=== PATIENT | female | born 1985 | race Caucasian/White ===

== ENCOUNTER 2019-06-30 15:20 | Inpatient (IN) | payer MEDICAID, OTHER ==
[~2019-06-30] VITALS: Ht 160 cm; Wt 75.8 kg
[~2019-06-30 15:20] MED LIST: PROP40TA7 PO
[2019-06-30] MEDS ORDERED: KETOROLAC 30MG/ML VIAL IV STA (16:06)
[2019-06-30] MEDS ORDERED: SODIUM CHLORIDE 0.9% 1,000 ML IV ONE (16:06)
[2019-06-30] MEDS ORDERED: ONDANSETRON HCL 4MG/2ML INJ IV STA (16:06)
[2019-06-30 16:28] LABS: CHLORIDE 106 mEq/L (98-107)
[2019-06-30 16:30] LABS: HEMATOCRIT. 34.1 % (36.0-48.0); HEMOGLOBIN. 10.8 g/dL (12.0-16.0); MEAN CORPUSCULAR HEMOGLOBIN 20.6 pg (28.0-32.0); MEAN CORPUSCULAR VOLUME 64.9 fL (81.0-99.0); MEAN PLATELET VOLUME 8.8 fl (7.4-10.4); PLATELET 305 x1000/uL (130-400); RED BLOOD CELL COUNT 5.26 mill/uL (4.2-5.4); RED CELL DISTRIBUTION WIDTH 20.1 % (11.6-14.6)
[2019-06-30 16:32] LABS: INR 1.5; PROTHROMBIN TIME 14.8 sec (9.6-11.0)
[2019-06-30 17:22] LABS: ATYPICAL LYMPHOCYTES 1; PLATELET ESTIMATE NORMAL
[2019-06-30] MEDS ORDERED: POTASSIUM CHLORIDE 20MEQ TABLET SR PO ONE (17:30)
[2019-06-30] MEDS ORDERED: PIPERACILLIN/TAZ 3.375G PREMIX 50 ML IV ONE (18:15)
[2019-06-30 19:51] LABS: CLARITY URINE TURBID (CLEAR); COLOR URINE DARK YELLOW (YELLOW); KETONES URINE TRACE (NEGATIVE); LEUKOCYTE ESTERASE URINE 1+ (NEGATIVE); NITRITE URINE POSITIVE (NEGATIVE); OCCULT BLOOD URINE NEGATIVE (NEGATIVE); PROTEIN URINE 1+ (NEGATIVE); SPECIFIC GRAVITY URINE 1.031 (1.005-1.030)
[2019-06-30 20:03] LABS: *BARBITURATES SCREEN URINE NEGATIVE (NEGATIVE); *BENZODIAZEPINES SCREEN URINE NEGATIVE (NEGATIVE)
[2019-06-30 20:04] LABS: *COCAINE SCREEN URINE NEGATIVE (NEGATIVE); METHADONE URINE SCREEN NEGATIVE (NEGATIVE); OPIATES URINE SCREEN NEGATIVE (NEGATIVE); PHENCYCLIDINE URINE SCREEN NEGATIVE (NEGATIVE)
[2019-06-30 20:09] LABS: *AMPHETAMINES SCREEN URINE PRESUMTIVE POSITIVE (NEGATIVE)
[2019-06-30 20:10] LABS: CANNABINOID URINE SCREEN PRESUMTIVE POSITIVE (NEGATIVE)
[2019-06-30] MEDS ORDERED: DOCUSATE SODIUM 100MG CAPSULE PO PRN (20:30)
[2019-06-30] MEDS ORDERED: MAGNESIUM/ALUMINUM HYDROXIDE/SIMETHICONE 30ML UDC PO PRN (20:30)
[2019-06-30] MEDS ORDERED: CLONIDINE 0.1MG TABLET PO PRN (20:30)
[2019-06-30] MEDS ORDERED: ONDANSETRON HCL 4MG/2ML INJ IV PRN (20:30)
[2019-06-30 21:00] VITALS: BP 107/71
[2019-06-30] MEDS: MORPHINE SULFATE 2 MG/ML CPJ (NOT FOR IM USE) IV PRN (21:31)
[2019-06-30] MEDS ORDERED: CEFTRIAXONE 1 G PREMIX 50 ML IV SCH (22:30)
[2019-06-30] MEDS ORDERED: POTASSIUM CHLORIDE INJ 40 MEQ in DEXT 5% WATER 250 ML IV NR (22:30)
[2019-06-30] MEDS: DEXT 5%/0.9% NACL 1,000 ML IV SCH (23:55)
[2019-07-01] VITALS: BP 104/57
[2019-07-01] MEDS: MORPHINE SULFATE 2 MG/ML CPJ (NOT FOR IM USE) IV PRN ×2 (01:14→06:50)
[2019-07-01 04:00] VITALS: BP 99/52
[2019-07-01 06:58] LABS: HEMATOCRIT. 28.9 % (36.0-48.0); MEAN CORPUSCULAR VOLUME 64.4 fL (81.0-99.0); MEAN PLATELET VOLUME 9.1 fl (7.4-10.4); PLATELET 232 x1000/uL (130-400); RED BLOOD CELL COUNT 4.49 mill/uL (4.2-5.4); RED CELL DISTRIBUTION WIDTH 20.6 % (11.6-14.6)
[2019-07-01 07:03] LABS: INR 1.8; PROTHROMBIN TIME 18.1 sec (9.6-11.0)
[2019-07-01 08:00] VITALS: BP 94/59
[2019-07-01 08:48] LABS: HEPATITIS B SURFACE ANTIGEN NEGATIVE
[2019-07-01 09:18] LABS: HEPATITIS A AB IGM NEGATIVE (NEGATIVE)
[2019-07-01 09:36] LABS: CHLORIDE 110 mEq/L (98-107)
[2019-07-01 09:47] LABS: PHOSPHORUS 3.5 mg/dL (2.5-4.9)
[2019-07-01 12:00] VITALS: BP 109/64
[2019-07-01 14:30] LABS: PLATELET ESTIMATE NORMAL
[2019-07-01 16:00] VITALS: BP 96/61
[2019-07-01] MEDS: AMPICILLIN SOD/SULBACTAM NA 3 G in SODIUM CHLORIDE 0.9% 100 ML IV SCH ×2 (16:12→21:51)
[2019-07-01 20:00] VITALS: BP 97/50
[2019-07-01] MEDS: DEXT 5%/0.9% NACL 1,000 ML IV SCH (21:52)
[2019-07-02] VITALS (7 sets, daily range): BP systolic 97–116; BP diastolic 56–72
[2019-07-02] MEDS: AMPICILLIN SOD/SULBACTAM NA 3 G in SODIUM CHLORIDE 0.9% 100 ML IV SCH ×4 (03:16→21:32)
[2019-07-02 07:06] LABS: INR 1.7; PROTHROMBIN TIME 16.7 sec (9.6-11.0)
[2019-07-02 07:07] LABS: HEMATOCRIT. 27.6 % (36.0-48.0); HEMOGLOBIN. 8.8 g/dL (12.0-16.0); MEAN CORPUSCULAR HEMOGLOBIN 20.5 pg (28.0-32.0); MEAN CORPUSCULAR VOLUME 64.1 fL (81.0-99.0); MEAN PLATELET VOLUME 8.8 fl (7.4-10.4); PLATELET 237 x1000/uL (130-400); RED BLOOD CELL COUNT 4.31 mill/uL (4.2-5.4); RED CELL DISTRIBUTION WIDTH 20.7 % (11.6-14.6)
[2019-07-02 07:18] LABS: CHLORIDE 110 mEq/L (98-107)
[2019-07-02 07:40] LABS: CREATINE KINASE 25 IU/L (26-192)
[2019-07-02 09:26] LABS: PLATELET ESTIMATE NORMAL
[2019-07-02] MEDS: MORPHINE SULFATE 2 MG/ML CPJ (NOT FOR IM USE) IV PRN (13:57)
[2019-07-03] VITALS: BP 100/61
[2019-07-03] MEDS: AMPICILLIN SOD/SULBACTAM NA 3 G in SODIUM CHLORIDE 0.9% 100 ML IV SCH ×4 (03:00→21:53)
[2019-07-03 04:00] VITALS: BP 98/53
[2019-07-03 05:04] LABS: HEMOGLOBIN. 9.1 g/dL (12.0-16.0); MEAN CORPUSCULAR HEMOGLOBIN 20.9 pg (28.0-32.0); MEAN CORPUSCULAR VOLUME 63.9 fL (81.0-99.0); MEAN PLATELET VOLUME 8.7 fl (7.4-10.4); PLATELET 260 x1000/uL (130-400); RED BLOOD CELL COUNT 4.38 mill/uL (4.2-5.4); RED CELL DISTRIBUTION WIDTH 21.2 % (11.6-14.6)
[2019-07-03 07:12] LABS: HIV SCREEN 4G Non Reactive (Non Reactive)
[2019-07-03 08:00] VITALS: BP 96/54
[2019-07-03 08:05] LABS: CHLORIDE 111 mEq/L (98-107)
[2019-07-03 08:15] LABS: CREATINE KINASE 23 IU/L (26-192)
[2019-07-03] MEDS ORDERED: HYDROCODONE/ACETAMINOPHEN 5/325MG TABLET PO PRN (10:30)
[2019-07-03 12:00] VITALS: BP 107/70
[2019-07-03 16:00] VITALS: BP 111/76
[2019-07-03] MEDS: DEXT 5%/0.9% NACL 1,000 ML IV SCH (16:10)
[2019-07-03 20:00] VITALS: BP 114/71
[2019-07-03] MEDS: MORPHINE SULFATE 2 MG/ML CPJ (NOT FOR IM USE) IV PRN (20:17)
[2019-07-04] VITALS: BP 102/68
[2019-07-04 04:00] VITALS: BP 90/58
[2019-07-04] MEDS: AMPICILLIN SOD/SULBACTAM NA 3 G in SODIUM CHLORIDE 0.9% 100 ML IV SCH ×4 (04:59→21:01)
[2019-07-04 08:00] VITALS: BP 101/62
[2019-07-04] MEDS: DEXT 5%/0.9% NACL 1,000 ML IV SCH (08:18)
[2019-07-04 09:35] LABS: INR 2.1; PROTHROMBIN TIME 21.1 sec (9.6-11.0)
[2019-07-04 11:13] LABS: HEMATOCRIT 33.2 % (36.0-48.0); HEMOGLOBIN 10.6 g/dL (12.0-16.0); MEAN CORPUSCULAR HEMOGLOBIN 20.4 pg (28.0-32.0); PLATELET 304 x1000/uL (130-400); RED BLOOD CELL COUNT 5.18 mill/uL (4.2-5.4); RED CELL DISTRIBUTION WIDTH 21.5 % (11.6-14.6)
[2019-07-04 11:39] LABS: CHLORIDE 109 mEq/L (98-107)
[2019-07-04 12:00] VITALS: BP 105/67
[2019-07-04] MEDS ORDERED: MAGNESIUM 2 G PREMIX 50 ML IV SCH (13:00)
[2019-07-04 15:28] LABS: PLATELET ESTIMATE NORMAL
[2019-07-04 16:00] VITALS: BP 108/71
[2019-07-04] MEDS: MORPHINE SULFATE 2 MG/ML CPJ (NOT FOR IM USE) IV PRN (20:49)
[2019-07-05] MEDS: AMPICILLIN SOD/SULBACTAM NA 3 G in SODIUM CHLORIDE 0.9% 100 ML IV SCH ×4 (05:42→20:46)
[2019-07-05 08:00] VITALS: BP 93/50
[2019-07-05 16:00] VITALS: BP 105/67
[2019-07-05] MEDS: DEXT 5%/0.9% NACL 1,000 ML IV SCH (17:45)
[2019-07-05] MEDS ORDERED: PHYTONADIONE 10MG/ML AMP SUBCUT NR (18:30)
[2019-07-06] VITALS: BP_SYST 98; BP_DIAS 66; BP_DIAS 71
[2019-07-06 04:00] VITALS: BP 100/70
[2019-07-06] MEDS: AMPICILLIN SOD/SULBACTAM NA 3 G in SODIUM CHLORIDE 0.9% 100 ML IV SCH ×5 (05:23→21:52)
[2019-07-06 07:02] LABS: HEMATOCRIT. 30.3 % (36.0-48.0); HEMOGLOBIN. 9.7 g/dL (12.0-16.0); MEAN CORPUSCULAR HEMOGLOBIN 20.5 pg (28.0-32.0); MEAN PLATELET VOLUME 9.1 fl (7.4-10.4); PLATELET 300 x1000/uL (130-400); RED BLOOD CELL COUNT 4.73 mill/uL (4.2-5.4); RED CELL DISTRIBUTION WIDTH 21.9 % (11.6-14.6)
[2019-07-06 07:05] LABS: INR 2.4; PROTHROMBIN TIME 23.9 sec (9.6-11.0)
[2019-07-06 07:10] LABS: CHLORIDE 106 mEq/L (98-107)
[2019-07-06 08:00] VITALS: BP 100/69
[2019-07-06] MEDS ORDERED: PHYTONADIONE 10MG/ML AMP SUBCUT NR (09:00)
[2019-07-06] MEDS: DEXT 5%/0.9% NACL 1,000 ML IV SCH (09:27)
[2019-07-06 12:00] VITALS: BP 113/71
[2019-07-06 16:00] VITALS: BP 106/68
[2019-07-06 20:00] VITALS: BP 109/57
[2019-07-07] VITALS: BP 106/68
[2019-07-07] MEDS: AMPICILLIN SOD/SULBACTAM NA 3 G in SODIUM CHLORIDE 0.9% 100 ML IV SCH (03:03)
[2019-07-07 04:00] VITALS: BP 101/66
[2019-07-07 06:58] LABS: INR 2.5; PARTIAL THROMBOPLASTIN TIME 50.2 sec (23.4-31.0); PROTHROMBIN TIME 25.1 sec (9.6-11.0)
[2019-07-07 08:00] VITALS: BP 104/50
[2019-07-07 10:11] LABS: ACTIN (SMOOTH MUSCLE) ANTIBODY 24 Units (0-19); MITOCHONDRIAL M2 AB <20.0 Units (0.0-20.0)
[2019-07-07 12:00] VITALS: BP 109/69
[2019-07-07 13:14] LABS: ANTI-NUCLEAR ANTIBODIES DIRECT Negative (Negative)
[2019-07-07] MEDS: AMOXICILLIN/POTASSIUM CLAVULANATE 500/125MG TAB PO SCH ×2 (13:29→21:18)
[2019-07-07] MEDS: LACTULOSE 20G/30ML UDC PO SCH ×2 (13:29→21:19)
[2019-07-07 16:00] VITALS: BP 86/53
[2019-07-07] MEDS: PHYTONADIONE 1MG/0.5ML AMP SUBCUT SCH (16:52)
[2019-07-07 20:00] VITALS: BP 106/71
[2019-07-07] MEDS: RIFAXIMIN 550 MG TABLET PO SCH (21:19)
[2019-07-08] VITALS: BP 111/64
[2019-07-08 04:00] VITALS: BP 120/71
[2019-07-08] MEDS: AMOXICILLIN/POTASSIUM CLAVULANATE 500/125MG TAB PO SCH ×3 (05:41→23:08)
[2019-07-08] MEDS: LACTULOSE 20G/30ML UDC PO SCH ×3 (05:41→23:08)
[2019-07-08] MEDS: RIFAXIMIN 550 MG TABLET PO SCH ×2 (09:27→23:08)
[2019-07-08] MEDS: PHYTONADIONE 1MG/0.5ML AMP SUBCUT SCH ×2 (09:28→17:32)
[2019-07-08] MEDS: DEXT 5%/0.9% NACL 1,000 ML IV SCH (14:21)
[2019-07-08 17:59] LABS: HEMATOCRIT 27.8 % (36.0-48.0); HEMOGLOBIN 8.9 g/dL (12.0-16.0); MEAN CORPUSCULAR HEMOGLOBIN 20.7 pg (28.0-32.0); MEAN CORPUSCULAR VOLUME 64.5 fL (81.0-99.0); PLATELET 337 x1000/uL (130-400); RED BLOOD CELL COUNT 4.31 mill/uL (4.2-5.4); RED CELL DISTRIBUTION WIDTH 22.6 % (11.6-14.6)
[2019-07-08 18:12] LABS: CHLORIDE 107 mEq/L (98-107)
[2019-07-08 18:16] LABS: PARTIAL THROMBOPLASTIN TIME 57.3 sec (23.4-31.0)
[2019-07-08 18:58] LABS: INR 3.3; PROTHROMBIN TIME 32.6 sec (9.6-11.0)
[2019-07-08 20:00] VITALS: BP 111/65
[2019-07-09] VITALS (10 sets, daily range): BP systolic 106–119; BP diastolic 61–83
[2019-07-09] MEDS: AMOXICILLIN/POTASSIUM CLAVULANATE 500/125MG TAB PO SCH ×3 (06:00→17:59)
[2019-07-09] MEDS: LACTULOSE 20G/30ML UDC PO SCH ×3 (06:00→22:07)
[2019-07-09 09:39] LABS: HEMATOCRIT. 32.5 % (36.0-48.0); HEMOGLOBIN. 10.3 g/dL (12.0-16.0); MEAN CORPUSCULAR HEMOGLOBIN 20.8 pg (28.0-32.0); MEAN CORPUSCULAR VOLUME 65.6 fL (81.0-99.0); MEAN PLATELET VOLUME 9.1 fl (7.4-10.4); PLATELET 375 x1000/uL (130-400); RED BLOOD CELL COUNT 4.96 mill/uL (4.2-5.4); RED CELL DISTRIBUTION WIDTH 23.6 % (11.6-14.6)
[2019-07-09 09:49] LABS: CHLORIDE 106 mEq/L (98-107)
[2019-07-09] MEDS: RIFAXIMIN 550 MG TABLET PO SCH ×2 (10:03→22:07)
[2019-07-09] MEDS: PHYTONADIONE 1MG/0.5ML AMP SUBCUT SCH ×2 (10:03→18:02)
[2019-07-09] MEDS ORDERED: POTASSIUM CHLORIDE 20MEQ TABLET SR PO NR (11:00)
[2019-07-09 12:53] LABS: PLATELET ESTIMATE NORMAL
[2019-07-09] MEDS: DEXT 5%/0.9% NACL 1,000 ML IV SCH (17:59)
[2019-07-09 19:09] LABS: INR 3.5; PARTIAL THROMBOPLASTIN TIME 59.4 sec (23.4-31.0); PROTHROMBIN TIME 34.3 sec (9.6-11.0)
[2019-07-09] MEDS ORDERED: DEXT 5% IV NR (23:00)
[2019-07-09] MEDS ORDERED: ACETYLCYSTEINE IV NR (23:00)
[2019-07-09] MEDS ORDERED: WATER IV NR (23:00)
[2019-07-10] VITALS (15 sets, daily range): BP systolic 98–149; BP diastolic 62–80
[2019-07-10] MEDS ORDERED: WATER IV NR ×2
[2019-07-10] MEDS ORDERED: ACETYLCYSTEINE IV NR ×2
[2019-07-10] MEDS ORDERED: DEXT 5% IV NR ×2
[2019-07-10] MEDS: DIPHENHYDRAMINE 50MG/ML VIAL IV PRN ×2 (01:34→06:29)
[2019-07-10] MEDS: AMOXICILLIN/POTASSIUM CLAVULANATE 500/125MG TAB PO SCH ×2 (05:12→13:58)
[2019-07-10] MEDS: LACTULOSE 20G/30ML UDC PO SCH ×2 (05:12→14:00)
[2019-07-10] MEDS ORDERED: ACETYLCYSTEINE IV SCH (06:00)
[2019-07-10] MEDS ORDERED: DEXTROSE 5% IV SCH (06:00)
[2019-07-10] MEDS ORDERED: WATER IV SCH (06:00)
[2019-07-10 06:42] LABS: HEMATOCRIT. 27.8 % (36.0-48.0); HEMOGLOBIN. 8.9 g/dL (12.0-16.0); MEAN CORPUSCULAR HEMOGLOBIN 20.7 pg (28.0-32.0); MEAN CORPUSCULAR VOLUME 64.5 fL (81.0-99.0); MEAN PLATELET VOLUME 8.8 fl (7.4-10.4); PLATELET 359 x1000/uL (130-400); RED BLOOD CELL COUNT 4.31 mill/uL (4.2-5.4); RED CELL DISTRIBUTION WIDTH 23.1 % (11.6-14.6)
[2019-07-10 06:47] LABS: CHLORIDE 108 mEq/L (98-107)
[2019-07-10 06:51] LABS: PARTIAL THROMBOPLASTIN TIME 67.8 sec (23.4-31.0)
[2019-07-10 07:28] LABS: PROTHROMBIN TIME > 100.0 sec (9.6-11.0)
[2019-07-10 07:29] LABS: INR > 10.0
[2019-07-10] MEDS: RIFAXIMIN 550 MG TABLET PO SCH (08:53)
[2019-07-10] MEDS: HYDROCODONE/ACETAMINOPHEN 5/325MG TABLET PO PRN ×2 (08:54→13:58)
[2019-07-10 09:40] LABS: PLATELET ESTIMATE NORMAL
[2019-07-10] MEDS ORDERED: PHYTONADIONE 10 MG in DEXTROSE 5% WATER 49 ML IV NR (11:00)
[2019-07-10] MEDS ORDERED: KCL 20MEQ/100ML PREMIX 100 ML IV NR (13:00)
[2019-07-10] MEDS ORDERED: POTASSIUM CHLORIDE 20MEQ TABLET SR PO NR (17:00)
== END 2019-07-10 19:51 | disposition left against medical advice (07) ==
LOC: ER 15:20 → 6EST 17:31 → ENRESERV 19:30 → 5EST 07-09 12:56
PROVIDERS: ADMIT Family Medicine Adult Medicine; ATTEND Family Medicine Adult Medicine
PROC: 30233K1 Transfusion of Nonautologous Frozen Plasma into Peripheral Vein, Percutaneous Approach (ICD-10-PCS; principal; 2019-07-10)
DX: K80.66 Calculus of gallbladder and bile duct with acute and chronic cholecystitis without obstruction (principal); K72.00 Acute and subacute hepatic failure without coma; B17.10 Acute hepatitis C without hepatic coma; D68.4 Acquired coagulation factor deficiency; D50.9 Iron deficiency anemia, unspecified; F12.10 Cannabis abuse, uncomplicated; R18.8 Other ascites; F16.10 Hallucinogen abuse, uncomplicated; K76.0 Fatty (change of) liver, not elsewhere classified; N39.0 Urinary tract infection, site not specified; J45.909 Unspecified asthma, uncomplicated; E87.6 Hypokalemia; Z53.21 Procedure and treatment not carried out due to patient leaving prior to being seen by health care provider; Z79.899 Other long term (current) drug therapy
CPT/HCPCS: 36415; 74181; 76705; 78227; 80048; 80076; 80305; 81003; 82140; 82248; 82550; 82728; 83516; 83540; 83550; 83735; 84100; 85027; 85362; 85384; 86038; 86705; 86709; 86803; 86850; 86900; 86927; 87340; 87389; 87522; 93005; 93970; 97162; 97166; 99285; A9537; J0132; J0295; J0696; J1200; J1885; J2270; J2405; J2543; J3430; J3475; J3480; J7030; J7040; J7042; J7050; J7060; J7070; P9017